=== PATIENT | female | born 1975 | race Caucasian/White ===

== ENCOUNTER 2023-08-30 14:01 | Emergency (ER) | payer OTHER ==
[2023-08-30] MEDS ORDERED: NA CHLORIDE 0.9% 1,000 ML ONE (14:17)
[2023-08-30 15:19] LABS: Absolute Basophils 0.1 K/uL (0-0.5); Absolute Eosinophils 0.1 K/uL (0-0.5); Absolute Lymphocytes (CBC) 3.6 K/uL (0.7-4.9); Absolute Monocytes 0.5 K/uL (0.1-1.3); Absolute Neutrophil 3.7 K/uL (1.8-8.0); Basophils % 0.7 % (0-1.3); Eosinophils % 1.2 % (0-4.4); Hemoglobin 14.2 g/dL (12.0-15.0); MCHC 32.3 g/dL (32.0-36.0); MCV 86.7 fL (80-100); MPV 8.4 fL (7.6-11.3); Monocytes % 6.4 % (3.3-12.3); Neutrophils % 46.7 % (41.7-73.7); Platelets 485 thou/uL (152-406); RBC Red Blood Cell Count 5.08 M/uL (3.86-4.86); Red Cell Distribution Width 13.3 % (12.1-15.2)
[2023-08-30 15:24] LABS: Anion Gap 13.4 mEq/L (5.0-15.0); Potassium 3.4 mEq/L (3.5-5.1)
[2023-08-30 15:31] LABS: SARS-CoV-2 Antigen CONTROL BLUE LINE VIS/BG OK; SARS-CoV-2 Antigen Rapid Res Negative (Negative)
[2023-08-30] MEDS ORDERED: FENTANYL CITR 100 MCG/2 ML ONE (15:48)
--- NOTE | 2023-08-30 16:40 | RAD REPORT ---
EXAM DESCRIPTION: CTAbdomen Pelvis W Contrast - 08/30/2023 4:02 pm CLINICAL HISTORY: Abdominal pain. ABD PAIN COMPARISON: No comparisonsNo comparisons TECHNIQUE: Biphasic CT imaging of the abdomen and pelvis was performed with 100 ml non-ionic IV cont rast. All CT scans are performed using dose optimization technique as appropriate and may include automated exposure control or mA/KV adjustment according to patient size. FINDINGS: The lung bases are clear. The liver, spleen, pancreas, adrenal glands and kidneys are within normal limits. No bowel obstruction, free air, free fluid or abscess. The appendix is normal. No evidence of signi ficant lymphadenopathy. No suspicious bony findings. IMPRESSION: No acute intra-abdominal or pelvic finding.
--- NOTE | 2023-08-30 16:51 | RAD REPORT ---
EXAM DESCRIPTION: RAD - Chest Single View - 08/30/2023 4:40 pm CLINICAL HISTORY: pain Chest pain. COMPARISON: <Comparisons> FINDINGS: Portable technique limits examination quality. The lungs are grossly clear. The heart is normal in size. No displaced fractures. IMPRESSION: No acute intrathoracic process suspected.
--- NOTE | 2023-08-30 16:53 | RAD REPORT ---
EXAM DESCRIPTION: RAD - Abdomen Single View - 08/30/2023 4:40 pm CLINICAL HISTORY: pain Pain COMPARISON: <Comparisons> FINDINGS: The bowel gas pattern is non-obstructive. No evidence of free air or pneumatosis. No suspi cious calcifications. No significant bony findings. Contrast is present system. IMPRESSION: Negative examination.
--- NOTE | 2023-08-30 17:02 | ER ---
Nurse's Notes [facility] Name: Lashell Avila Age: 47 yrs Sex: Female : 1975 Arrival Date: 08/30/2023 Time: 14:01 Bed 6 Private MD: Diagnosis: Abdominal pain, unspecified;Nausea with vomiting, unspecified Presentation: 08/29 14:08 Chief complaint: Patient states: pt hyperventilating in triage, states "I dont't feel iw good" neighbor states she has not been able to keep anything down. Coronavirus screen: Client presents with at least one sign or symptom that may indicate coronavirus-19. Ebola Screen: Patient negative for fever greater than or equal to 101.5 degrees Fahrenheit, and additional compatible Ebola Virus Disease symptoms Patient denies exposure to infectious person. Patient denies travel to an Ebola-affected area in the 21 days before illness onset. No symptoms or risks identified at this time. Initial Sepsis Screen: Does the patient meet any 2 criteria? RR > 20 per min. HR > 90 bpm. Does the patient have a suspected source of infection? No. Patient's initial sepsis screen is negative. Risk Assessment: Do you want to hurt yourself or someone else? Patient reports no desire to harm self or others. Onset of symptoms was August 27, 2023. 14:08 Method Of Arrival: Wheelchair iw 14:08 Acuity: SHANTELLE 2 iw Historical: - Allergies: 14:03 Codeine; iw 14:03 Demerol; iw 14:03 Sulfa (Sulfonamide Antibiotics); iw 14:10 Dicyclomine; iw 14:10 quilipta; iw - PMHx: 14:10 Asthma; Sinusitis; PCOS; narcolepsy; Fibromyalgia; Hypothyroidism; bulging disc; IBS; iw Hypercholesterolemia; Anemia; gastroparesis; Migraine; Hypertensive disorder; Hashimotos; barretts esophagus; Osteoarthritis; - Family history:: not pertinent. - Hospitalizations: : No recent hospitalization is reported. Screenin:[facility] ED Fall Risk Assessment (Adult) History of falling in the last 3 months, kc6 including since admission No falls in past 3 months (0 pts) Confusion or Disorientation No (0 pts) Intoxicated or Sedated No (0 pts) Impaired Gait No (0 pts) Mobility Assist Device Used No (0 pt) Altered Elimination No (0 pt) Score/Fall Risk Level 0 - 2 = Low Risk. Abuse screen: Denies threats or abuse. Denies injuries from another. Nutritional screening: No deficits noted. Tuberculosis screening: No symptoms or risk factors identified. Assessment: 14:32 General: Appears distressed, uncomfortable, well groomed, well developed, Behavior is kc6 anxious, crying, restless. Pain: Complains of pain in ALL OVER. Neuro: Level of Consciousness is awake, alert, obeys commands, Oriented to person, place, time, situation, Appropriate for age. Cardiovascular: Capillary refill < 3 seconds. Respiratory: Airway is patent Trachea midline Respiratory effort is even, labored, Respiratory pattern is symmetrical, hyperventilation Breath sounds are clear bilaterally. GI: Reports nausea, vomiting, Patient currently denies diarrhea. : No signs and/or symptoms were reported regarding the genitourinary system. EENT: No signs and/or symptoms were reported regarding the EENT system. Derm: No signs and/or symptoms reported regarding the dermatologic system. Skin is intact, is healthy with good turgor, Skin is pink, warm \\T\\ dry. Musculoskeletal: No signs and/or symptoms reported regarding the musculoskeletal system. Circulation, motion, and sensation intact. Capillary refill < 3 seconds, Range of motion: intact in all extremities. 15:25 Reassessment: Patient appears in no apparent distress at this time. No changes from kc6 previously documented assessment. Patient and/or family updated on plan of care and expected duration. Pain level reassessed. Patient is alert, oriented x 3, equal unlabored respirations, skin warm/dry/pink. 16:29 Reassessment: Patient appears in no apparent distress at this time. No changes from kc6 previously documented assessment. Patient and/or family updated on plan of care and expected duration. Pain level reassessed. Patient is alert, oriented x 3, equal unlabored respirations, skin warm/dry/pink. Patient states feeling better. Patient states symptoms have improved. 17:13 Reassessment: Patient appears in no apparent distress at this time. No changes from kc6 previously documented assessment. Patient and/or family updated on plan of care and expected duration. Pain level reassessed. Patient is alert, oriented x 3, equal unlabored respirations, skin warm/dry/pink. Vital Signs: 14:08 BP 117 / 87; Pulse 90; Resp 30; Temp 98.1; Pulse Ox 100% on R/A; iw 15:12 BP 137 / 72; Pulse 87; Resp 20; Pulse Ox 100% on R/A; me1 15:25 BP 134 / 78; Pulse 79; Resp 16 S; Pulse Ox 99% on R/A; kc6 16:21 BP 135 / 80; Pulse 69; Resp 16; Pulse Ox 96% ; sm8 17:14 BP 123 / 81; Pulse 76; Resp 16 S; Pulse Ox 98% on R/A; kc6 ED Course: 14:02 Patient arrived in ED. iw 14:06 Gabriel Perez MD is Attending Physician. rn 14:07 Trena Butler RN is Primary Nurse. kc6 14:10 Triage completed. iw 14:16 Inserted saline lock: 20 gauge in right forearm, using aseptic technique. Blood kc6 collected. 14:21 EKG done, by ED staff, reviewed by Gabriel Perez MD. em1 14:32 Patient has correct armband on for positive identification. Bed in low position. Call kc6 light in reach. Side rails up X2. Adult w/ patient. Client placed on continuous cardiac and pulse oximetry monitoring. NIBP monitoring applied. quality assurance monitor on. Door closed. Noise minimized. Visitors limited. Lights dimmed. Warm blanket given. 14:32 Arm band placed on. kc6 14:34 Radiology exam delayed due to lab results not completed at this time. (BUN/Creatinine). nj 16:04 Abdomen In Process Unspecified. EDMS 16:19 Abdomen Single View In Process Unspecified. EDMS 16:19 Chest Single View In Process Unspecified. EDMS 17:13 No provider procedures requiring assistance completed. IV discontinued, intact, kc6 bleeding controlled, No redness/swelling at site. Pressure dressing applied. Administered Medications: 14:28 Drug: NS 0.9% IV 1000 ml IV at 1 bolus Per protocol; 1000 mL bolus Route: IV; Rate: 1 kc6 bolus; Site: right forearm; 17:13 Follow up: Response: No adverse reaction; IV Status: Completed infusion; IV Intake: kc6 1000ml 14:28 Drug: Droperidol IVP 2.5 mg IVP once Route: IVP; Site: right forearm; kc6 17:12 Follow up: Response: No adverse reaction; Nausea is decreased; Vomiting decreased kc6 15:56 Drug: fentaNYL (PF) IVP 50 mcg IVP once Route: IVP; Site: right antecubital; kc6 16:29 Follow up: Response: No adverse reaction; Pain is decreased; RASS: Alert and Calm (0) kc6 Medication: 17:13 VIS not applicable for this client. kc6 Intake: 17:13 IV: 1000ml; Total: 1000ml. kc6 Outcome: 17:02 Discharge ordered by . rn 17:13 Discharged to home ambulatory, with family, kc6 17:13 Condition: improved 17:13 Discharge instructions given to patient, Instructed on discharge instructions, follow up and referral plans. medication usage, Demonstrated understanding of instructions, follow-up care, medications, Prescriptions given X 1, 17:14 Patient left the ED. kc6 Signatures: Dispatcher [employer] Andreina Hess RN RN iw Nieto, Roman, MD MD rn Martinez, Eric em1 Niko Loyola Kaitlyn, RN RN kc6 Hayley Hawley 8 Courtney Rust RN RN me1
--- NOTE | 2023-08-30 17:02 | EDPHYS ---
Physician Documentation [facility] Name: Lashell Avila Age: 47 yrs Sex: Female : 1975 Arrival Date: 08/30/2023 Time: 14:01 Bed 6 Private MD: ED Physician Gabriel Perez HPI: 08/29 14:15 This 47 yrs old Female presents to ER via Wheelchair with complaints of abd pain, rn vomiting. 14:15 The patient presents with abdominal pain that is diffuse. Onset: The symptoms/episode rn began/occurred 2 day(s) ago. The symptoms do not radiate. Associated signs and symptoms: Pertinent positives: nausea, vomiting, and diarrhea, shortness of breath, Pertinent negatives: blood in stools, chest pain, fever. Modifying factors: The symptoms are alleviated by nothing, the symptoms are aggravated by nothing. Severity of pain: At its worst the pain was moderate in the emergency department the pain is unchanged. The patient has experienced similar episodes in the past. Patient reports feeling sick for 2 days, generalized weakness and malaise associated with abdominal pain with nausea and vomiting and diarrhea. No blood in stool or emesis. Vomiting is worse than diarrhea. Neighbor brought her into the ER today. States now having shortness of breath and her whole body is going numb. Patient wheeled back from waiting room hyperventilating and tearful/crying.. Historical: - Allergies: 14:03 Codeine; iw 14:03 Demerol; iw 14:03 Sulfa (Sulfonamide Antibiotics); iw 14:10 Dicyclomine; iw 14:10 quilipta; iw - PMHx: 14:10 Asthma; Sinusitis; PCOS; narcolepsy; Fibromyalgia; Hypothyroidism; bulging disc; IBS; iw Hypercholesterolemia; Anemia; gastroparesis; Migraine; Hypertensive disorder; Hashimotos; barretts esophagus; Osteoarthritis; - Family history:: not pertinent. - Hospitalizations: : No recent hospitalization is reported. ROS: 14:15 Constitutional: Negative for fever, chills, and weight loss, ENT: Negative for injury, rn pain, and discharge, Neck: Negative for injury, pain, and swelling, Cardiovascular: Negative for chest pain, palpitations, and edema, Respiratory: Positive for shortness of breath, negative for cough Abdomen/GI: Positive for abdominal pain with nausea/vomiting/diarrhea MS/Extremity: Negative for injury and deformity, Skin: Negative for injury, rash, and discoloration, Neuro: Positive for generalized weakness and tingling all over her body Exam: 14:15 Constitutional: This is a well developed, well nourished patient who is awake, alert, rn hyperventilating and tearful. Crying. Somewhat consolable Head/Face: Normocephalic, atraumatic. ENT: Dry mucous membranes Cardiovascular: Regular rate and rhythmyet. No pulse deficits. Respiratory: Hyperventilating Abdomen/GI: Soft, mild mid abdominal tenderness without distention or rebound MS/ Extremity: Pulses equal, no cyanosis. Neuro: Awake and alert, GCS 15, moves all 4 extremities with equal strength. 14:15 ECG was reviewed by the Attending Physician. Vital Signs: 14:08 BP 117 / 87; Pulse 90; Resp 30; Temp 98.1; Pulse Ox 100% on R/A; iw 15:12 BP 137 / 72; Pulse 87; Resp 20; Pulse Ox 100% on R/A; me1 15:25 BP 134 / 78; Pulse 79; Resp 16 S; Pulse Ox 99% on R/A; kc6 16:21 BP 135 / 80; Pulse 69; Resp 16; Pulse Ox 96% ; sm8 17:14 BP 123 / 81; Pulse 76; Resp 16 S; Pulse Ox 98% on R/A; kc6 MDM: 14:06 Patient medically screened. rn 17:01 Differential diagnosis: appendicitis, bowel obstruction, cholecystitis, Cholelithiasis, rn gastritis, gastroesophageal reflux disease, non-specific abd pain, pancreatitis, Peptic Ulcer Disease, Perf. Duodenal Ulcer, Perf. Gastric Ulcer, Pyelonephritis, Ureterolithiasis. Data reviewed: vital signs, nurses notes, lab test result(s), EKG, radiologic studies, CT scan, plain films, and as a result, I will discharge patient. Counseling: I had a detailed discussion with the patient and/or guardian regarding the historical points, exam findings, and any diagnostic results supporting the discharge/admit diagnosis, lab results, radiology results, the need for outpatient follow up, to return to the emergency department if symptoms worsen or persist or if there are any questions or concerns that arise at home. Special discussion: Based on the patient's Hx, exam, and Dx evaluation, there is no indication for emergent surgery or inpatient Tx. It is understood by the patient/guardian that if the Sx's persist or worsen they need to return immediately for re-evaluation. I discussed with the patient/guardian in detail that at this point there is no indication for admission to the hospital. It is understood, however, that if the symptoms persist or worsen the patient needs to return immediately for re-evaluation. ED course: Patient markedly improved. Resting comfortably. No acute complaints. Would like to go home. No acute findings and workup today. Will discharge with return precautions and PCP follow-up. Will send home with as needed Zofran.. 08/29 15:07 Order name: Basic Metabolic Panel EDOH 08/29 15:07 Order name: Lipase EDOH 08/29 15:07 Order name: SARS-COV-2 Antigen Rapid EDOH 08/29 15:07 Order name: CBC with Automated Diff EDOH 08/29 15:07 Order name: Influenza Screen (A EDOH 08/29 15:19 Order name: CBC with Automated Diff; Complete Time: 15:42 EDOH 08/29 15:24 Order name: Basic Metabolic Panel; Complete Time: 15:42 EDOH 08/29 15:24 Order name: Lipase; Complete Time: 15:42 EDOH 08/29 15:31 Order name: Influenza Screen (A ; Complete Time: 15:42 EDOH 08/29 15:31 Order name: SARS-COV-2 Antigen Rapid; Complete Time: 15:42 EDOH 08/29 14:26 Order name: Abdomen EDOH 08/29 15:44 Order name: Abdomen Single View EDOH 08/29 15:52 Order name: Chest Single View EDOH 08/29 16:42 Order name: CT; Complete Time: 16:50 EDOH 08/29 16:52 Order name: RAD; Complete Time: 16:57 EDOH 08/29 16:53 Order name: RAD; Complete Time: 16:57 EDOH 08/29 14:13 Order name: EKG; Complete Time: 14:14 rn 08/29 14:13 Order name: IV Saline Lock; Complete Time: 14:15 rn 08/29 14:13 Order name: Labs collected and sent; Complete Time: 14:16 rn 08/29 14:13 Order name: EKG - Nurse/Tech; Complete Time: 14:15 rn EC:15 Rate is 76 beats/min. Rhythm is regular. QRS [place] is Normal. ME interval is normal. QRS rn interval is normal. QT interval is normal. No Q waves. T waves are Normal. No ST changes noted. Clinical impression: Normal ECG. Interpreted by me. Reviewed by me. Administered Medications: 14:28 Drug: NS 0.9% IV 1000 ml IV at 1 bolus Per protocol; 1000 mL bolus Route: IV; Rate: 1 kc6 bolus; Site: right forearm; 17:13 Follow up: Response: No adverse reaction; IV Status: Completed infusion; IV Intake: kc6 1000ml 14:28 Drug: Droperidol IVP 2.5 mg IVP once Route: IVP; Site: right forearm; kc6 17:12 Follow up: Response: No adverse reaction; Nausea is decreased; Vomiting decreased kc6 15:56 Drug: fentaNYL (PF) IVP 50 mcg IVP once Route: IVP; Site: right antecubital; kc6 16:29 Follow up: Response: No adverse reaction; Pain is decreased; RASS: Alert and Calm (0) kc6 Disposition Summary: 08/30/23 17:02 Discharge Ordered Notes: Location: Home rn Problem: new rn Symptoms: have improved rn Condition: Stable rn Diagnosis - Abdominal pain, unspecified rn - Nausea with vomiting, unspecified rn Followup: rn - With: Private Physician - When: As needed - Reason: Recheck today's complaints, Re-evaluation by your physician Discharge Instructions: - Discharge Summary Sheet rn - Abdominal Pain, Adult rn - Nausea and Vomiting, Adult rn Forms: - Medication Reconciliation Form rn - Antibiotic cuff turner - Prescription Opioid Use rn - Patient Portal Instructions rn - Leadership Thank You Letter rn Prescriptions: - ondansetron 4 mg Oral Tablet,disintegrating - take 1 tablet ORAL route every 8 hours As needed; 12 tablet; Refills: 0, rn Product Selection Permitted Signatures: Dispatcher [employer] EDMS Andreina Zamorano RN Gabriel Howell MD MD rn Campbell, Kaitlyn, RN RN kc6 Corrections: (The following items were deleted from the chart) 14:13 14:13 CBC+H.LAB.BRZ ordered. EDMS EDMS 14:13 14:13 COMPREHENSIVE METABOLIC PANEL+C.LAB.BRZ ordered. EDMS EDMS 14:13 14:13 LIPASE+C.LAB.BRZ ordered. EDMS EDMS : 14:13 Urinalysis+U.LAB.BRZ ordered. EDMS EDMS 14:14 14:14 Influenza Screen (A \T\ B)+BA.LAB.BRZ ordered. EDMS EDMS 14: 14:14 SARS-COV-2 Antigen Rapid+I.LAB.BRZ ordered. EDMS EDMS
[2023-08-30 19:12] VITALS: BP 123/81; TEMP 98.1; O2SAT 98
== END 2023-08-30 17:14 | disposition home or self-care (01) ==
LOC: ER 14:01
DX: R10.9 Unspecified abdominal pain (principal); R11.2 Nausea with vomiting, unspecified; Z11.52 Encounter for screening for COVID-19; Z88.1 Allergy status to other antibiotic agents; Z88.2 Allergy status to sulfonamides; Z88.5 Allergy status to narcotic agent; Z88.8 Allergy status to other drugs, medicaments and biological substances
CPT/HCPCS: 93005; 85025; 80048; 36415; 83690; 87804 ×2; 74177; 74018; 71045; 99285; 87811; Q9967; J3010; J7030